=== PATIENT | female | born 1970 | race Caucasian/White ===

== ENCOUNTER 2021-01-26 07:51 | Emergency (ER) | payer MEDICAID, SELFPAY ==
[2021-01-26 07:52] VITALS: BP 157/134; PULSE 106; RESP 16; TEMP 35.5; O2SAT 93; BMI 33.2
--- NOTE | 2021-01-26 08:05 | ED.RN ---
pt tearful while this nurse was in the room, pt denies self harm and denies suicidal ideation.
--- NOTE | 2021-01-26 08:10 | ED.VISSUMM ---
- ER Visit Summary Date of Service: 01/26/21 Chief Complaint: Right forearm lacerations History of Present Illness: The patient is a 50 F who presents with laceration to her right forearm that occurred today. Patient states she hit her arm on a glass door and it broke. Patient states the glass cut her forearm. Patient states she was able to remove a piece of glass from her wound. Patient does admit to some tingling in her fingers but denies any weakness. Patient states she has pain whenever she moves her fingers. Patient is unsure of her last tetanus. Patient describes her pain is dull and constant. Physical Examination: Vital signs are stable. Patient is afebrile. Patient is in no acute distress. Skin is warm and dry. There is a 4 cm full-thickness linear laceration over the ulnar aspect of the right forearm. There is also a 3.2 cm full-thickness laceration over the volar aspect of the distal right forearm. There is no active bleeding. There is moderate gapping of the wound margins. There are no foreign bodies visualized. Sensation was intact to light touch in the radial, median, and ulnar areas. Strength is 5/5 in the radial, median, and ulnar areas. Test Results: X-rays of the right forearm were obtained. There are 2 views. On my interpretation, there is no acute fracture. There is no foreign body noted. Radiologist also interpreted the x-ray and agrees. Emergency Department Course and Treatment: LET gel was applied to the wounds. The wounds were cleaned and irrigated with copious amounts of normal saline. The wounds were anesthetized with 1% plain lidocaine locally. The wound on the volar aspect of the distal forearm was closed with 4 simple interrupted #4-0 nylon sutures under sterile technique. Wound on the ulnar aspect of the mid forearm was closed with 6 simple interrupted #4-0 nylon sutures under sterile technique. Patient tolerated the procedure well. Bacitracin dressing was applied. Patient was instructed to keep the wounds clean and dry. Patient was instructed to take Tylenol or ibuprofen as needed for pain. Patient was instructed to follow-up with her primary care physician in 7 days for wound recheck and suture removal. Patient understood and was agreeable with the plan. All questions were answered. Disposition: Discharge home Impression: Right forearm lacerations This note was generated with [employer] software. It may contain incorrect words, spelling, and punctuation that were not noted in review of the chart prior to signing ED Disposition - Plan for ED Patient: Disposition: Home or Assisted Living Diagnosis: Laceration of right forearm without complication Instructions: ED Laceration: All Closures Referrals: Dave Song MD [STAFF PHYSICIAN] - 7 Days for suture removal
[2021-01-26] MEDS: Diphth,Pertuss(Acell),Tet Vac 0.5 ML Vial IM (08:23)
[2021-01-26] MEDS: Lidocaine/Epi/Tetracaine 50 ML 1 APPLIC TOPICAL (08:24)
--- NOTE | 2021-01-26 08:30 | RAD_ITS ---
STUDY: X-RAY - RIGHT RADIUS AND ULNA REASON FOR EXAM: Female, 50 years old. Injury/Pain TECHNIQUE: 2 view(s) of the forearm. COMPARISON: None. FINDINGS: There is evidence of a soft tissue laceration overlying the distal forearm along the ventral aspect of the distal ulna. Normal visualized radius. Normal visualized ulna. RAD/Forearm 2 Views IMPRESSION: Soft tissue laceration. No radiopaque foreign body is seen. Electronically Signed: Zev Milian MD at 8:48 EDT , Service support ,
[2021-01-26] MEDS: Ondansetron ODT 4 MG Tablet PO (08:31)
[2021-01-26 10:39] VITALS: PULSE 88; RESP 17; O2SAT 97
[2021-01-26] MEDS: Lidocaine 1% (20 ml mdv) 20 ML Vial INFILT (10:41)
--- NOTE | 2021-01-26 10:41 | ED.RN ---
the pt was observed by this rn for shot time, no reaction was noted by this rn.
== END 2021-01-26 10:15 | disposition home or self-care (01) ==
PROVIDERS: Emergency Provider Emergency Medicine
DX: S51.811A Laceration without foreign body of right forearm, initial encounter (principal); F17.200 Nicotine dependence, unspecified, uncomplicated; W22.09XA Striking against other stationary object, initial encounter; W25.XXXA Contact with sharp glass, initial encounter
CPT/HCPCS: 12002; 73090; 90471; 90715; 99285

== ENCOUNTER → 2021-10-27 12:58 | Outpatient (CLI) | payer MEDICAID, SELFPAY | PROVIDERS: Referring Provider Family Medicine; Visit Provider Family Medicine | DX: Z03.818 Encounter for observation for suspected exposure to other biological agents ruled out (principal) | CPT/HCPCS: 87635; U0005; U0003 ==

== ENCOUNTER 2023-02-07 14:38 | Emergency (ER) | payer MEDICAID, SELFPAY ==
[2023-02-07 14:39] VITALS: BP 168/125; PULSE 114; RESP 16; TEMP 36.4; O2SAT 98; BMI 32.4
--- NOTE | 2023-02-07 16:18 | EX.ED.VIS.PS ---
HPI HPI - Psych History of Present Illness Chief Complaint: Mental Health Narrative Narrative: Patient presents with bipolar exacerbation and out of medications. She states she has been on Effexor off-and-on in the past. She has been on it for the last 6 months and she states she has had the best 6 months of her life. She feels a very stabilized. She had gone through over a year of counseling. She had read a lot of books about feedback and meditation. But she has been doing great. She states she missed an appointment so she did not get a refill. She has now been out of the meds for 3 days. She woke up this morning and in her words she was at a low. She did not want to get out of bed. She just felt like she could . She states she does not want to . She does not want to hurt herself. She wants to feel better. She called [facility] to see if she can get a refill even for a week until she could get in to be seen. But because of her feelings this morning they referred her here. Patient was able to get up this morning. She states she uses meditation and techniques she has learned in the past. She was able to go to work and complete her day. She feels much better now than she did this morning but she still feels like she needs her medicine. She states she does very well on it. She has no physical complaints. [facility] Medical History Depression Home Medications venlafaxine 75 mg capsule,extended release 24 hr 75 mg PO DAILY 02/07/23 [History Last Taken Unknown] venlafaxine 75 mg capsule,extended release 24 hr (Effexor XR) 75 mg PO DAILY #10 caps 02/07/23 [Rx Last Taken Unknown] Allergy/AdvReac Type Severity Reaction Status Date / Time codeine AdvReac Hives Verified 01/26/21 07:52 Social History Smoking Status: Current every day smoker tobacco type: cigarettes ROS ROS ED Constitutional Constitutional ED: Denies fever(s) Eyes Eyes: Denies change in vision ENT ENT ED: Denies rhinorrhea Cardiovascular Cardiovascular: Denies chest pain Respiratory/Chest Respiratory/Chest: Denies cough or dyspnea Gastrointestinal Gastrointestinal: Denies nausea or vomiting Musculoskeletal Musculoskeletal: Denies myalgias Integumentary Denies rash Psychiatric Psychiatric: Reports other Details: History of present illness. ; Denies suicidal ideation Allergic/Immunologic Allergic/Immunologic ED: Denies urticaria EXAM Physical Exam Narrative Exam Narrative: Patient pleasant sitting quietly in bed. Carries on normal conversation. HEENT shows normal mucous membranes Neck is supple Heart is regular. Her rate is about 90 for me. Lungs are clear bilaterally. O2 sat is normal. Abdomen soft nontender. Neurologically she is awake alert appropriate with normal gait balance and coordination and speech. Psychiatry: She makes excellent eye contact. She is appropriately dressed and groomed. She gives a very clear concise and organized history. There is no flight of ideas. No indication of hallucinations. She states she had thoughts of dying this morning but not really thoughts of hurting herself. She does not want to do this. She is not having those thoughts now. She feels that she will do much better back on the Effexor. Const Vital Signs: 02/07/23 14:39 Temperature 97.5 F L Temperature Source Temporal Pulse Rate 114 H Respiratory Rate 16 Blood Pressure 168/125 H Blood Pressure Mean 139 Pulse Ox 98 Oxygen Delivery Method Room Air MDM MDM MDM Narrative Medical decision making narrative: I do not think this patient needs to see a psychiatric counseling here. I think we need to get her back on her meds. If she has thoughts of self injury I encouraged her to come back. She states she definitely would because she likes feeling healthy. She states she has had a very balanced years without significant highs or lows. She does not like having either highs or lows and she had a low this morning. I do not think blood work is necessary. Discharge Plan Triage Chief Complaint: Mental Health ED Provider: Martin Reeves Dx/Rx/DC Orders Clinical Impression: Bipolar 1 disorder Instructions: ED Bipolar Disorder Prescriptions: New venlafaxine [Effexor XR] 75 mg capsule,extended release 24hr 75 mg PO DAILY Qty: 10 0RF No Action venlafaxine 75 mg capsule,extended release 24hr 75 mg PO DAILY Label Comments: take 1 capsule by mouth once daily Primary Care Provider: Care Physician,No Primary Referrals: Catalina Sood [Non-Staff] - As soon as possible Care Physician,No Primary [Primary Care Provider] - Disposition Disposition: Home, Self Care
== END 2023-02-07 16:43 | disposition home or self-care (01) ==
LOC: ED 16:39
PROVIDERS: Emergency Provider Emergency Medicine; Visit Provider Emergency Medicine
DX: F31.9 Bipolar disorder, unspecified (principal); F17.210 Nicotine dependence, cigarettes, uncomplicated; Z79.899 Other long term (current) drug therapy
CPT/HCPCS: 99282